=== PATIENT | male | born 1980 | race Caucasian/White ===

== ENCOUNTER 2018-05-06 19:50 | Emergency (ER) | payer SELFPAY ==
[~2018-05-06] VITALS: Ht 182.9 cm; Wt 106.6 kg
[2018-05-06] MEDS ORDERED: LABETALOL 20 MG/4 ML DISP.SYRIN. IVP ONE (20:15)
[2018-05-06] MEDS ORDERED: fentaNYL PF VIAL 100 MCG/2 ML VIAL IV ONE (20:15)
[2018-05-06] MEDS ORDERED: NITROGLYCERIN OINT 1 GM PACKET. TP ONE (20:15)
--- NOTE | 2018-05-06 20:24 | PHYS DOC ---
Adult General Chief Complaint Chief Complaint: CHEST PAIN HPI HPI Patient is a 37 year old m p/w chest pain. was at [facility]27 for 4.8 cm thoracic aa had workup told come back three months sinceleaving still dull pain center of chest lifts 80 lbs at work, makes it worse. today it was hitting him more sharp with coughing and going to the back. came back in to be eavluated he is worried that it might be leaking. Review of Systems Review of Systems Constitutional: Denies fever or chills [] Eyes: Denies change in visual acuity, redness, or eye pain [] GI: Denies abdominal pain, nausea, vomiting, bloody stools or diarrhea [] : Denies dysuria or hematuria [] Musculoskeletal: Integument: Denies rash or skin lesions [] All other systems were reviewed and found to be within normal limits, except as documented in this note. Current Medications Current Medications Current Medications Medications (Trade) Dose Ordered Sig/Allyssa Start Time Stop Time Status Last Admin Dose Admin Fentanyl Citrate (Fentanyl 2ml Vial) 50 mcg 1X ONCE 05/06/18 20:15 05/06/18 20:24 DC 05/06/18 20:58 50 MCG Info (CONTRAST GIVEN -- Rx MONITORING) 1 each PRN DAILY PRN 05/06/18 20:45 05/08/18 20:44 Iohexol (Omnipaque 350 Mg/ml) 100 ml 1X ONCE 05/06/18 21:00 05/06/18 21:01 DC 05/06/18 20:58 100 ML Labetalol HCl (Normodyne Iv Push) 10 mg 1X ONCE 05/06/18 20:15 05/06/18 20:24 DC 05/06/18 20:58 10 MG Nitroglycerin (Nitro-Bid Oint) 2 inch 1X ONCE 05/06/18 20:15 05/06/18 20:24 DC 05/06/18 20:56 2 INCH Allergies Allergies Allergies Coded Allergies Type Severity Reaction Last Updated Verified No Known Drug Allergies 05/06/18 No Physical Exam Physical Exam Constitutional: Well developed, well nourished, no acute distress, non-toxic appearance. [] HENT: Normocephalic, atraumatic, bilateral external ears normal, oropharynx moist, no oral exudates, nose normal. [] Eyes: PERRLA, EOMI, conjunctiva normal, no discharge. [] Neck: Normal range of motion, no tenderness, supple, no stridor. [] Cardiovascular:Heart rate regular rhythm, no murmur [] Lungs & Thorax: Bilateral breath sounds clear to auscultation [] Abdomen: Bowel sounds normal, soft, no tenderness, no masses, no pulsatile masses. [] Skin: Warm, dry, no erythema, no rash. [] Back: No tenderness, no CVA tenderness. [] Extremities: No tenderness, no cyanosis, no clubbing, ROM intact, no edema. [] Neurologic: Alert and oriented X 3, normal motor function, normal sensory function, no focal deficits noted. [] Psychologic: Affect normal, judgement normal, mood mild anxiety Current Patient Data Vital Signs Vital Signs Date Time Temp Pulse Resp B/P (MAP) Pulse Ox O2 Delivery O2 Flow Rate FiO2 05/06/18 21:59 66 20 120/65 (83) 95 Room Air 05/06/18 20:00 99.0 99.0 Lab Values Laboratory Tests Test 05/06/18 20:10 05/06/18 20:17 05/06/18 20:21 05/06/18 23:03 White Blood Count 9.7 x10^3/uL (4.0-11.0) Red Blood Count 4.93 x10^6/uL (4.30-5.70) Hemoglobin 16.4 g/dL (13.0-17.5) Hematocrit 47.8 % (39.0-53.0) Mean Corpuscular Volume 97 fL (79-100) Mean Corpuscular Hemoglobin 33 pg (25-35) Mean Corpuscular Hemoglobin Concent 34 g/dL (31-37) Red Cell Distribution Width 12.7 % (11.5-14.5) Platelet Count 268 x10^3/uL (140-400) Neutrophils (%) (Auto) 65 % (31-73) Lymphocytes (%) (Auto) 25 % (24-48) Monocytes (%) (Auto) 8 % (0-9) Eosinophils (%) (Auto) 1 % (0-3) Basophils (%) (Auto) 1 % (0-3) Neutrophils # (Auto) 6.3 x10^3uL (1.8-7.7) Lymphocytes # (Auto) 2.5 x10^3/uL (1.0-4.8) Monocytes # (Auto) 0.8 x10^3/uL (0.0-1.1) Eosinophils # (Auto) 0.1 x10^3/uL (0.0-0.7) Basophils # (Auto) 0.1 x10^3/uL (0.0-0.2) Prothrombin Time 12.7 SEC (11.7-14.0) Prothrombin Time INR 1.0 (0.8-1.1) Sodium Level 142 mmol/L (136-145) Potassium Level 4.1 mmol/L (3.5-5.1) Chloride Level 103 mmol/L (98-107) Carbon Dioxide Level 26 mmol/L (21-32) Anion Gap 13 (6-14) 18 mmol/L (6-14) H Blood Urea Nitrogen 19 mg/dL (8-26) Creatinine 1.0 mg/dL (0.7-1.3) Estimated GFR (Cockcroft-Gault) 84.1 BUN/Creatinine Ratio 19 (6-20) Glucose Level 98 mg/dL (70-99) 97 mg/dL (70-99) Calcium Level 9.7 mg/dL (8.5-10.1) Total Bilirubin 0.3 mg/dL (0.2-1.0) Aspartate Amino Transferase (AST) 33 U/L (15-37) Alanine Aminotransferase (ALT) 71 U/L (16-63) H Alkaline Phosphatase 76 U/L (46-116) EE-Tui-K-Type Natriuretic Peptide 7 pg/mL (0-124) Total Protein 8.2 g/dL (6.4-8.2) Albumin 4.1 g/dL (3.4-5.0) Albumin/Globulin Ratio 1.0 (1.0-1.7) Ethyl Alcohol Level 22 mg/dL (0-10) H POC Troponin I 0.00 ng/ml (<0.08) 0.01 ng/ml (<0.08) POC Hemoglobin 16.3 g/dL (14-18) POC Hematocrit 48 % (37-52) POC Sodium 142 mmol/L (135-145) POC Potassium 4.0 mmol/L (3.5-5.0) POC Chloride 104 mmol/L (98-110) POC Total CO2 25 mmol/L (23-32) POC Blood Urea Nitrogen 19 mg/dL (8-26) POC Creatinine 0.9 mg/dL (0.5-1.4) POC Ionized Calcium (Paula) 1.22 mmol/L (1.13-1.32) Laboratory Tests 05/06/18 20:10 Laboratory Tests 05/06/18 20:10 05/06/18 20:21 EKG EKG nsr rate 91 no ischemic changes noted. no stemi. Radiology/Procedures Radiology/Procedures [] Impressions: cxr neg my read, herat bones lungs normal CTA of the chest, abdomen and pelvis with contrast 05/06/2018 CLINICAL HISTORY: Chest pain. History of thoracic aortic aneurysm. TECHNIQUE: After the intravenous administration of 100 cc of Omnipaque 350, contiguous, 0.625 mm axial sections were obtained through the chest, abdomen and pelvis. Multiplanar 3-D MIP and volume rendered 3-D reconstructions images were obtained. One or more of the following individualized dose reduction techniques were utilized for this study: 1. Automated exposure control. 2. Adjustment of the mA and/or kV according to patient size. 3. Use of iterative reconstruction technique. FINDINGS: Comparison is made to portable chest radiograph performed earlier today. No additional imaging studies are available for comparison. The ascending thoracic aorta is dilated measuring 4.6 cm in greatest diameter at the level of main pulmonary artery. No intimal flap is seen to suggest evidence of a thoracic aortic dissection. There is a common origin of the brachiocephalic and the left common carotid artery. This is normal variation. This origin is patent. The origin of the left subclavian artery is patent. No filling defect is seen within the visualized pulmonary arteries to suggest evidence of pulmonary embolism. The heart is normal in size. Minimal dependent subsegmental atelectasis is seen involving both lungs. No area of consolidation is seen. No pneumothorax or pleural effusion is noted. The liver parenchyma has a decreased attenuation consistent with fatty infiltration. The spleen, pancreas, adrenal glands and kidneys are within normal limits. The gallbladder is contracted. No free fluid or free air is within the abdomen. There is no evidence of bowel obstruction. The appendix is well-visualized and is within normal limits. Images through the pelvis. Urinary bladder distended with urine. No free fluid is seen. CTA images of the abdominal aorta are within normal limits. The abdominal aorta tapers normally. Two renal arteries are seen supplying the right kidney. They are patent. The left renal artery is solitary and patent. The celiac trunk,, mesenteric artery and inferior mesenteric artery are patent. The common iliac arteries and their branches are patent. Minimal S-shaped curvature of the thoracolumbar spine is seen. Degenerative changes are seen involving mid and lower thoracic spine and mid and lower lumbar spine. IMPRESSION: No acute abnormality is seen. Electronically signed by: Rubens Simmons MD (05/06/2018 9:31 PM) [facility] DICTATED and SIGNED BY: RUBENS SIMMONS MD DATE: 05/06/182117 Course & Med Decision Making Course & Med Decision Making Pertinent Labs and Imaging studies reviewed. (See chart for details) 37 yo m hx of thor aa 4.8 cm p/w cp. ]Got the records from "after scan results of CT surgery recommended close follow-up with repeat imaging in the next 3 months they recommend strict blood pressure control with a goal systolic under 120." He had a CT scan over there that did show a thoracic aneurysm measuring 4.4 cm. Records at one point say is 4.4 cm and another dictation and says it is 4.8 cm. Nevertheless today in this ER it is 4.6 cm what appears clinically stable. Patient has been monitored in this ER for several hours troponin is negative 2 chest pain went away blood pressure has responded well to antihypertensives. I believe in light of this very recent CT surgery recommendation it would be okay to discharge this patient home he is instructed by me and the importance of blood pressure control and stopping smoking that is his primary goal at this time. He knows he is post to follow up at for further management of this aneurysm within 3 months as previously delineated last week. Dragon Disclaimer Dragon Disclaimer This electronic medical record was generated, in whole or in part, using a voice recognition dictation system. Departure Departure Impression: Primary Impression: Chest pain Additional Impression: Elevated blood pressure reading Disposition: 01 HOME, SELF-CARE Condition: STABLE Referrals: NO PCP (PCP) Problem Qualifiers JANE DOMINGO MD May 06, 2018 20:24
[2018-05-06 20:25] LABS: BASO # 0.1 x10^3/uL (0.0-0.2); BASO % 1 % (0-3); EOS # 0.1 x10^3/uL (0.0-0.7); EOS % 1 % (0-3); HEMATOCRIT 47.8 % (39.0-53.0); HEMOGLOBIN 16.4 g/dL (13.0-17.5); LYMPH # 2.5 x10^3/uL (1.0-4.8); LYMPH % 25 % (24-48); MEAN CORPUSCULAR HEMOGLOBIN 33 pg (25-35); MEAN CORPUSCULAR HGB CONC 34 g/dL (31-37); MEAN CORPUSCULAR VOLUME 97 fL (79-100); MONO # 0.8 x10^3/uL (0.0-1.1); MONO % 8 % (0-9); NEUT # 6.3 x10^3uL (1.8-7.7); NEUT % 65 % (31-73); PLATELET COUNT 268 x10^3/uL (140-400); RED BLOOD COUNT 4.93 x10^6/uL (4.30-5.70); RED CELL DISTRIBUTION WIDTH 12.7 % (11.5-14.5); WHITE BLOOD COUNT 9.7 x10^3/uL (4.0-11.0)
[2018-05-06 20:31] LABS: PROTHROMBIN TIME PATIENT 12.7 SEC (11.7-14.0)
[2018-05-06 20:32] LABS: CREATININE ISTAT 0.9 mg/dL (0.5-1.4); HEMOGLOBIN ISTAT 16.3 g/dL (14-18); ION CA ISTAT 1.22 mmol/L (1.13-1.32)
[2018-05-06 20:36] LABS: CALCIUM 9.7 mg/dL (8.5-10.1); GFR 84.1; POTASSIUM 4.1 mmol/L (3.5-5.1)
[2018-05-06 20:43] LABS: ALBUMIN 4.1 g/dL (3.4-5.0); TOTAL BILIRUBIN 0.3 mg/dL (0.2-1.0); TOTAL PROTEIN 8.2 g/dL (6.4-8.2)
[2018-05-06] MEDS ORDERED: CONTRAST GIVEN. MC PRN (20:45)
[2018-05-06] MEDS ORDERED: IOHEXOL 350 MG/ML 100 ML VIAL. IV ONE (21:00)
--- NOTE | 2018-05-06 21:34 | RAD ---
CTA of the chest, abdomen and pelvis with contrast 05/06/2018 CLINICAL HISTORY: Chest pain. History of thoracic aortic aneurysm. TECHNIQUE: After the intravenous administration of 100 cc of Omnipaque 350, contiguous, 0.625 mm axial sections were obtained through the chest, abdomen and pelvis. Multiplanar 3-D MIP and volume rendered 3-D reconstructions images were obtained. One or more of the following individualized dose reduction techniques were utilized for this study: 1. Automated exposure control. 2. Adjustment of the mA and/or kV according to patient size. 3. Use of iterative reconstruction technique. FINDINGS: Comparison is made to portable chest radiograph performed earlier today. No additional imaging studies are available for comparison. The ascending thoracic aorta is dilated measuring 4.6 cm in greatest diameter at the level of main pulmonary artery. No intimal flap is seen to suggest evidence of a thoracic aortic dissection. There is a common origin of the brachiocephalic and the left common carotid artery. This is normal variation. This origin is patent. The origin of the left subclavian artery is patent. No filling defect is seen within the visualized pulmonary arteries to suggest evidence of pulmonary embolism. The heart is normal in size. Minimal dependent subsegmental atelectasis is seen involving both lungs. No area of consolidation is seen. No pneumothorax or pleural effusion is noted. The liver parenchyma has a decreased attenuation consistent with fatty infiltration. The spleen, pancreas, adrenal glands and kidneys are within normal limits. The gallbladder is contracted. No free fluid or free air is within the abdomen. There is no evidence of bowel obstruction. The appendix is well-visualized and is within normal limits. Images through the pelvis. Urinary bladder distended with urine. No free fluid is seen. CTA images of the abdominal aorta are within normal limits. The abdominal aorta tapers normally. Two renal arteries are seen supplying the right kidney. They are patent. The left renal artery is solitary and patent. The celiac trunk,, mesenteric artery and inferior mesenteric artery are patent. The common iliac arteries and their branches are patent. Minimal S-shaped curvature of the thoracolumbar spine is seen. Degenerative changes are seen involving mid and lower thoracic spine and mid and lower lumbar spine. IMPRESSION: No acute abnormality is seen. Electronically signed by: Rubens Camacho MD (05/06/2018 9:31 PM) [facility]
--- NOTE | 2018-05-06 23:28 | RAD ---
AP portable chest radiograph 05/06/2018 Clinical History: Chest pain for 2 weeks. An AP erect portable digital radiograph of the chest was obtained. No previous studies are available for comparison. The cardiac and mediastinal silhouettes are within normal limits in size and configuration. No acute pulmonary infiltrate is seen. No pleural effusion or pneumothorax is noted. The osseous structures are grossly intact. IMPRESSION: No acute abnormality is seen. Electronically signed by: Rubens Camacho MD (05/06/2018 11:25 PM) [facility]
[2018-05-07 00:14] VITALS: BP 122/71
--- NOTE | 2018-05-09 15:03 | EKG ---
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
== END 2018-05-07 00:40 | disposition home or self-care (01) ==
LOC: ER 20:15
DX: R07.89 Other chest pain (principal); R05 Cough; R03.0 Elevated blood-pressure reading, without diagnosis of hypertension
CPT/HCPCS: 36415; 71045; 71275; 74174; 80047; 80053; 83880; 84484; 85025; 85610; 93005; 96374; 96375; 99284; G0480; J3010; J3490; Q9967

== ENCOUNTER 2020-01-01 02:10 | Emergency (ER) | payer OTHER ==
[~2020-01-01] VITALS: Ht 182.9 cm; Wt 94.5 kg
[2020-01-01] MEDS ORDERED: cefTRIAXone IM 250 MG VIAL IM ONE (03:00)
[2020-01-01] MEDS ORDERED: IBUPROFEN 200 MG TABLET. PO ONE (03:00)
[2020-01-01] MEDS ORDERED: AZITHROMYCIN 250 MG TABLET. PO ONE (03:00)
[2020-01-01] MEDS ORDERED: ORPHENADRINE CITRATE 60 MG/2 ML VIAL. IM ONE (03:00)
[2020-01-01] MEDS ORDERED: ORPH100T PO (03:08)
[2020-01-01] MEDS ORDERED: NAPR-695 PO (03:08)
--- NOTE | 2020-01-01 03:08 | PHYS DOC ---
Past Medical History Past Medical History: Hypertension Additional Past Medical Histor: THORACIC ANEURISM, CERVICAL STENOSIS Past Surgical History: Other Additional Past Surgical Histo: CERVICAL FUSION Smoking Status: Current Every Day Smoker Alcohol Use: Occasionally Drug Use: None General Adult EDM: Chief Complaint: UPPER EXTREMITY PAIN HPI: HPI: Niko Ellington is a 39-year-old male who presents with multiple complaints. His primary complaint is sexual transmitted disease exposure. He states that Wednesday his was informed that she tested positive for gonorrhea and began a course of antibiotics. They were engaging in sexual acts prior to her diagnosis but stopped following. He currently complains of fever, dysuria, white penile discharge with urination, and testicular fullness sensation. He affirms multiple joint pain, noted below, but denies vision changes. Patient also complains of right shoulder pain for the last 36 hours. He states that he was recently released from alf and restarted his copious medications that include gabapentin and numerous heart medications. This regiment causes him to be drowsy and he stumbled into a door, striking his left side. He states that abduction his shoulder exacerbates the pain. He has not taken anything for this pain. He denies history of trauma to the right shoulder, but had similar pain in the left some years ago. The patient also complains of left wrist pain that originates on the medial aspect. He states that this is been a chronic issue for him but is worsened over the last week. He states that it feels like a "tendon is tight". He is able to have full motion at his wrist and fingers. The patient also complains of left gastrocnemius tendon pain that has been chronic for the past 5 years. He states that the pain is worsened over the last week. He denies history of trauma. Review of Systems: Review of Systems: Constitutional: Denies fever or chills Eyes: Denies redness, eye pain, vision changes HENT: Denies nasal congestion or sore throat Respiratory: Denies cough or shortness of breath Cardiovascular: Denies chest pain or palpitations GI: Denies abdominal pain, nausea, or vomiting : Denies hematuria ; affirms dysuria, penile discharge Musculoskeletal: Denies back pain; affirms wrist pain, shoulder pain, leg pain Integument: Denies rash or skin lesions Neurologic: Denies headache, focal weakness or sensory changes Complete systems were reviewed and found to be within normal limits, except as documented in this note. Heart Score: Risk Factors: Risk Factors: DM, Current or recent (<one month) smoker, HTN, HLP, family history of CAD, obesity. Risk Scores: Score 0 - 3: 2.5% MACE over next 6 weeks - Discharge Home Score 4 - 6: 20.3% MACE over next 6 weeks - Admit for Clinical Observation Score 7 - 10: 72.7% MACE over next 6 weeks - Early Invasive Strategies Allergies: Allergies: Allergies Coded Allergies Type Severity Reaction Last Updated Verified No Known Drug Allergies 05/06/18 No Physical Exam: PE: Constitutional: Well developed, well nourished, no acute distress, non-toxic appearance. [] HENT: Normocephalic, atraumatic, bilateral external ears normal, oropharynx moist, no oral exudates, nose normal. [] Eyes: PERRLA, EOMI, conjunctiva normal, no discharge. [] Neck: Normal range of motion, no tenderness, supple, no stridor. [] Cardiovascular:Heart rate regular rhythm, no murmur [] Lungs & Thorax: Bilateral breath sounds clear to auscultation [] Abdomen: Bowel sounds normal, soft, no tenderness, no masses, no pulsatile masses. [] Skin: Warm, dry, no erythema, no rash. [] Back: No tenderness, no CVA tenderness. [] Extremities: No tenderness, no cyanosis, no clubbing, ROM intact, no edema. [] Neurologic: Alert and oriented X 3, normal motor function, normal sensory function, no focal deficits noted. [] Psychologic: Affect normal, judgement normal, mood normal. [] Course & Med Decision Making: Course & Med Decision Making Pertinent Labs and Imaging studies reviewed. (See chart for details) Patient presented with multiple complaints as noted above. Patient will be screened for gonorrhea and treated prophylactically with Rocephin due to known exposure. Ibuprofen is used for pain control of patient's multiple joint complaints. Imaging reveals negative findings. Long discussion with patient regarding need for primary care to properly address these issues. Patient will be discharged with instructions for contacting free clinic given his economic situation. Evieon Disclaimer: Rickey Disclaimer: This electronic medical record was generated, in whole or in part, using a voice recognition dictation system. Departure Departure Impression: Primary Impression: Sexually transmitted disease exposure Additional Impressions: Right shoulder strain Qualified Codes: S46.911A - Strain of unspecified muscle, fascia and tendon at shoulder and upper arm level, right arm, initial encounter Chronic pain Qualified Codes: G89.29 - Other chronic pain Disposition: 01 DC HOME SELF CARE/HOMELESS Condition: STABLE Referrals: NO PCP (PCP) Please see free clinic handout included in discharge instructions. GUILLE TOBAR MD Patient Instructions: Chronic Pain, Sexually Transmitted Disease, [id number], Shoulder Pain, [id number] Scripts Orphenadrine Citrate (ORPHENADRINE CITRATE) 100 Mg Tablet.er 1 TAB PO BID PRN for MUSCLE SPASMS, #14 TAB Prov: TALI COVARRUBIAS DO 01/01/20 Naproxen (NAPROXEN) 375 Mg Tablet 375 MG PO TID PRN for PAIN, #20 TAB Prov: TALI COVARRUBIAS DO 01/01/20 TALI COVARRUBIAS DO Jan 01, 2020 03:08
[2020-01-01 03:26] VITALS: BP 148/80
--- NOTE | 2020-01-01 03:27 | RAD ---
EXAM: SHOULDER 2+V RIGHT 01/01/2020 2:49 AM CLINICAL INDICATION:Pain COMPARISON:None TECHNIQUE:3 views of the right shoulder FINDINGS:No acute fracture. Alignment is normal. There is mild acromioclavicular degenerative joint disease. Glenohumeral joint is maintained. The subacromial space is normal. Visualized right lung is clear. IMPRESSION:No acute osseous abnormality. Electronically signed by: Nicole Hraper MD (01/01/2020 3:23 AM) [id number]
== END 2020-01-01 03:35 | disposition home or self-care (01) ==
LOC: ER 02:10
DX: S46.911A Strain of unspecified muscle, fascia and tendon at shoulder and upper arm level, right arm, initial encounter (principal); G89.29 Other chronic pain; Z20.2 Contact with and (suspected) exposure to infections with a predominantly sexual mode of transmission; M25.532 Pain in left wrist; I10 Essential (primary) hypertension; F17.200 Nicotine dependence, unspecified, uncomplicated; W22.8XXA Striking against or struck by other objects, initial encounter; Y93.89 Activity, other specified; Y92.89 Other specified places as the place of occurrence of the external cause; Y99.8 Other external cause status
CPT/HCPCS: 73030; 96372; 99284; J0696; J2360